=== PATIENT | female | born 1995 | race Caucasian/White ===

== ENCOUNTER → 2024-09-12 16:20 | Outpatient (BNVA) | payer SELFPAY | PROVIDERS: Visit Provider Emergency Medicine | DX: R50.9 Fever, unspecified (principal) | CPT/HCPCS: 87400 ==

== ENCOUNTER 2025-07-21 09:28 | Outpatient (CLI) | payer OTHER, SELFPAY ==
--- NOTE | 2025-07-21 09:36 | MM_ITS ---
WS: [id number] BILATERAL 3D TOMOSYNTHESIS DIGITAL DIAGNOSTIC MAMMOGRAPHY WITH CAD CLINICAL INFORMATION: FAMILY HX OF BREAST CANCER/LUMP OR MASS IN BREAST HISTORY: Movable RIGHT breast lump COMPARISON: Baseline TECHNIQUE: Bilateral CC, MLO, and ML views. FINDINGS: The breasts are composed of heterogeneous fibroglandular density, which can limit the detection of small underlying mass lesions. Large lobulated partially calcified lesion with dystrophic calcifications in the upper inner RIGHT breast posterior depth measuring 3.7 x 2.5 cm. This may represent a giant calcified fibroadenoma in a patient this age but indeterminate and recommend further evaluation with ultrasound-guided biopsy Unremarkable LEFT breast ULTRASOUND BREAST RIGHT TECHNIQUE: Ultrasound right breast focused area of concern. FINDINGS: In the area of concern, in the 1 o'clock position 5 cm from the nipple, patient directed, there is a large shadowing lobulated mass in the posterior breast. This measures approximately 1.8 x 1.9 x 3.0 cm. Recommend further evaluation with ultrasound-guided biopsy. MM/MM diag BI tomosynthesis [id number] IMPRESSION: DENSITY: The breasts are heterogeneously dense, which may obscure small masses. BI-RADS: 4 - Suspicious Finding - Biopsy Should Be Considered FOLLOW UP: US Guided Biopsy Recommended Recommend ultrasound-guided biopsy of the RIGHT breast mass
== END 2025-07-21 09:29 | disposition home or self-care (01) ==
LOC: RAD 09:31
PROVIDERS: Visit Provider Family Medicine
DX: N63.12 Unspecified lump in the right breast, upper inner quadrant (principal); Z80.3 Family history of malignant neoplasm of breast; R92.333 Mammographic heterogeneous density, bilateral breasts; R92.323 Mammographic fibroglandular density, bilateral breasts; R92.1 Mammographic calcification found on diagnostic imaging of breast
CPT/HCPCS: 76642; 77062; G0279

== ENCOUNTER 2025-08-03 12:06 | Outpatient (CLI) | payer MEDICAID, SELFPAY ==
--- NOTE | 2025-08-03 12:12 | US_ITS ---
WS: [id number] ULTRASOUND-GUIDED RIGHT BREAST BIOPSY HISTORY: Hypoechoic mass RIGHT breast at 1:00. COMPARISON: 07/21/2025 Procedure, risks and complications are explained to the patient. Medications are reviewed. Consent is obtained. The mass in the RIGHT breast is localized with ultrasound. Mass localizes to 1:00, 5 cm from the nipple. Skin is cleansed with ChloraPrep and anesthetized with 1% buffered lidocaine. Small dermatome is made. Under sterile conditions mass is biopsied with a 14-gauge Achieve needle. Multiple core biopsies are performed. Material placed in formalin and sent to pathology for review. No complications encountered. Breast tissue marker (LogMeIn ultrasound enhanced ribbon): Single. Patient left the radiology suite with no complications. Patient is instructed to return [place] [facility] [place] with any concerns. US/[place] [id number] IMPRESSION: 1. Uncomplicated core needle biopsy RIGHT breast mass at 1:00. PATHOLOGY: Benign fibroadenoma. Negative for malignancy. RECOMMENDATION: See report. 1. Imaging and pathology findings are concordant. Due to the large size of the mass consider surgical excision. As this is a very large mass image guided biopsy is only a sampling of the tissue.
== END 2025-08-03 12:07 | disposition home or self-care (01) ==
LOC: RAD 12:08
PROVIDERS: PCP Family Medicine; Visit Provider Family Medicine
DX: D24.1 Benign neoplasm of right breast (principal)
CPT/HCPCS: 19083; 88305